=== PATIENT | male | born 1985 | race Native Hawaiian/Other Pacific Islander ===

== ENCOUNTER 2023-11-23 10:33 | Outpatient (CLI) | payer MEDICAID, SELFPAY ==
--- NOTE | 2023-11-23 11:00 | CRLHL7_ITS ---
For Patients: As a result of the Century Cures Act, medical imaging exams and procedure reports are released immediately into your electronic medical record. You may view this report before your referring provider. If you have questions, please contact your health care provider. INDICATION: Left lung mass on the patient`s recent chest radiographs of 11/21/2023. COMPARISON: Radiographs of the chest 11/21/2023. TECHNIQUE: CT of the chest with 75 cc of Isovue 370 intravenous contrast. Please note that all CT scans at this facility use dose modulation, iterative reconstruction, and/or weight-based dosing when appropriate to reduce radiation dose to as low as reasonably achievable. FINDINGS: Visualized Lower Neck: No lower cervical adenopathy. Mediastinum: Thoracic aorta and pulmonary trunk are normal in caliber. Heart and pericardium are without significant findings. Trachea and esophagus are normal in appearance. There is no mediastinal lymphadenopathy. Lungs and Pleura: The lesion of concern demonstrated on the recent prior chest radiographs of 11/21/2023 for which this examination is performed as a fat containing hernia traversing a defect in the left hemidiaphragm measuring 1.8 cm AP (series 5; image 24) by 1.9 cm transverse (4; 32).. No significant pleural effusion. No pneumothorax. Skeleton: No significant osseous findings. Thoracic soft tissues: Unremarkable. No axillary adenopathy. Visualized Upper Abdomen: No significant findings. IMPRESSION: Left anterior hemidiaphragmatic defect transmitting omental fat which extends into the left lower hemithorax accounting for the low-density mass on the recent prior chest radiographs. Subspecialty surgical referral is suggested for consideration of elective repair. Otherwise normal exam. Please note that all CT scans at this facility use dose modulation, iterative reconstruction, and/or weight-based dosing when appropriate to reduce radiation dose to as low as reasonably achievable. Dictated by Xavi Chatman MD @ 11/23/2023 3:39:14 PM (Electronically Signed)
== END 2023-11-23 10:34 | disposition home or self-care (01) ==
PROVIDERS: Visit Provider Physician Assistant
DX: R91.8 Other nonspecific abnormal finding of lung field (principal)
CPT/HCPCS: 71260; Q9967

== ENCOUNTER 2025-04-13 21:43 | Emergency (ER) | payer BC, SELFPAY ==
[2025-04-13 21:52] VITALS: BP 131/84; PULSE 89; RESP 18; TEMP 36.6; O2SAT 99; BMI 38.0
--- NOTE | 2025-04-13 22:07 | ED_ITS ---
HPI - General Adult General Chief complaint: Unspecified Complaint, Adult Stated complaint: wants STD testing Time Seen by Provider: 04/13/25 22:07 History of Present Illness HPI narrative: CC: Exposure to Chlamydia pt. had sex with girlfriend who was tested positive for chlamydia 2 weeks ago. denies any symptoms, just wants to get tested. 39-year-old man presenting to the emergency department with concern of exposure to chlamydia. Is here with his girlfriend who tested positive 2 weeks ago for chlamydia. She was treated. Does not sound as though they have been intimate since. He is not having any dysuria or unusual penile discharge. No fever. No swellings or other discharge or hematuria or pain. 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, in remission (ICD-10) Diaphragmatic hernia ?K44.9 - Diaphragmatic hernia without obstruction or gangrene (ICD-10) Social History Narrative: Single, not currently working What is your current living situation?: I presently have a place to live Problems where you live: no known problems In the past 12 months, utilities in danger of being shut off: no In past 12 months, lack of transportation kept you from medical appts, meetings, work, or getting things needed for daily living: no In the past 12 mos, have been you worried that your food would run out before you had money to buy more?: never true In the past 12 mos, the food you bought just didn't last and you didn't have money to buy more?: never true Smoking Status: Current every day smoker What tobacco products do you use: cigarettes Do you use any of these nicotine containing products: Vaping Products Second hand tobacco smoke exposure: Yes How often do you have a drink containing alcohol: 2-4 times a month AUDIT-C Alcohol total score: 2 Non-prescribed substance use: marijuana (any form) How often does anyone, including family, friends and others, physically hurt you : never How often does anyone, including family, friends and others, insult or talk down to you: never How often does anyone, including family, friends and others, threaten you with harm: never How often does anyone, including family, friends and others, scream or curse at you: rarely Health Related Social Needs: Other personal risk factors, not elsewhere classified (Z91.89) Exam Narrative: Exam Narrative: Very pleasant. Extremely polite, respectful. Breathing easily. Relationship appears calm with girlfriend. Const: Vital Signs, click to edit/add: Vital Signs - 24 hr 04/13/25 21:52 04/13/25 22:37 04/13/25 22:40 Temperature 97.9 F 97.9 F 97.9 F Pulse Rate [Right Pulse Oximeter] 89 84 84 Respiratory Rate 18 18 18 Blood Pressure [Ri ght Upper Arm] 131/84 129/87 129/87 Pulse Oximetry 99 99 Oxygen Delivery Me thod Room Air Room Air Documenting provider has reviewed patient's vital signs: yes Course Vital Signs Vital signs: Initial Vital Signs Temperature 97.9 F 04/13/25 21:52 Temperature Source Temporal Artery Scan 04/13/25 21:52 Pulse Rate 89 04/13/25 21:52 Respiratory Rate 18 04/13/25 21:52 Blood Pressure 131/84 04/13/25 21:52 Blood Pressure Mean 99 04/13/25 21:52 Blood Pressure Position Sitting 04/13/25 21:52 Pulse Oximetry 99 04/13/25 21:52 Oxygen Delivery Method Room Air 04/13/25 21:52 Vital Signs Temperature 97.9 F 04/13/25 21:52 Pulse Rate 89 04/13/25 21:52 Respiratory Rate 18 04/13/25 21:52 Blood Pressure 131/84 04/13/25 21:52 Pulse Oximetry 99 04/13/25 21:52 Oxygen Delivery Method Room Air 04/13/25 21:52 Temperature 97.9 F 04/13/25 22:40 Pulse Rate 84 04/13/25 22:40 Respiratory Rate 18 04/13/25 22:40 Blood Pressure 129/87 04/13/25 22:40 Pulse Oximetry 99 04/13/25 22:37 Oxygen Delivery Method Room Air 04/13/25 22:37 Medical Decision Making MDM Narrative Medical decision making narrative: Discussed standard practice of treating sexual partner but he would like to be tested and not take antibiotics if not necessary. He is asymptomatic; I suppose that is reasonable. Urinalysis was collected for gonorrhea chlamydia testing by amplified DNA. Did discuss potentially screening for other STIs though in clinic follow-up. Delayed results in busy emergency department and so I told them that I would be contacting them with results after discharge. See patient discharge plan for further discussion I appreciate your concerns about getting tested. I will call you if this result is positive and we will arrange treatment. Medical Records Medical records reviewed: Yes I reviewed the patient's medical records Lab Data Lab results reviewed: Yes I reviewed the patient's lab results Labs: Lab Results 04/13/25 Range/Units 21:48 C.trachomatis Ampl DNA NOT DETECTED (No Detected) N.gonorrhoeae Ampl DNA NOT DETECTED (No Detected) Discharge Plan Discharge Clinical Impression: Exposure to chlamydia Patient Disposition: Home, Self-Care Condition: Stable Additional Instructions: I appreciate your concerns about getting tested. I will call you if this result is positive and we will arrange treatment. Prescriptions: No Action No Known Home Medications Follow Up/Referrals: Provider,Not a Local [Primary Care Provider, Family Practice] Stand Alone Forms: [facility] Info Instructions
[2025-04-13 22:37] VITALS: BP 129/87; PULSE 84; RESP 18; TEMP 36.6; O2SAT 99
[2025-04-13 22:40] VITALS: BP 129/87; PULSE 84; RESP 18; TEMP 36.6
[2025-04-13 23:23] LABS: Chlamydia DNA Amplified* NOT DETECTED (No Detected); GC DNA Amplified* NOT DETECTED (No Detected)
== END 2025-04-13 22:40 | disposition home or self-care (01) ==
LOC: ED 22:39
PROVIDERS: Emergency Provider Family Medicine
DX: Z20.2 Contact with and (suspected) exposure to infections with a predominantly sexual mode of transmission (principal)
CPT/HCPCS: 87491; 87591; 99283